=== PATIENT | male | born 1970 | race Caucasian/White ===

== ENCOUNTER 2021-05-26 10:09 | Emergency (ER) | payer OTHER, MEDICAID, SELFPAY ==
[2021-05-26 10:14] VITALS: BP 132/87; PULSE 80; RESP 14; TEMP 37.4; O2SAT 97; BMI 26.5
--- NOTE | 2021-05-26 10:35 | ED_ITS ---
HPI - Skin/Abscess/Foreign Bdy General Chief complaint: Skin/Abscess/Foreign Body Stated complaint: LT Side Neck Lump Time Seen by Provider: 05/26/21 10:35 Source: patient Mode of arrival: Ambulatory Limitations: no limitations History of Present Illness HPI narrative: The patient presents with a mass in his left anterior neck, he 1st noticed this about 1 month ago. He has no recent URI symptoms, he has no dysphagia. His no regular, no difficulty breathing. There has been no drainage from the site. There is no warmth at the site. He has no history of respiratory illness. He smokes marijuana, no tobacco. Related Data Allergies Allergy/AdvReac Type Severity Reaction Status Date / Time No Known Drug Allergies Allergy Verified 05/26/21 10:19 Review of Systems Constitutional Constitutional: Denies anorexia, Denies chills, Denies fever(s), Denies headache(s) and Denies night sweats Comments: No weight loss Eyes Comments: No eye complaints ENT Ears, Nose, Mouth, and Throat: Denies headache(s), Denies neck pain, Denies sore throat and Denies throat swelling Comments: Nontender left neck mass Cardiovascular Cardiovascular: Denies chest pain and Denies rapid heart rate Musculoskeletal Musculoskeletal: Denies neck pain Neurologic Neurologic: Denies headache(s) Allergic/Immunologic Allergic/Immunologic: Denies throat swelling Patient History Social History Smoking Status: Unknown if ever smoked Smoking Status: Unknown if ever smoked alcohol intake frequency: holidays/special occasions only Substance Use Type: marijuana Exam Initial Vital Signs Initial Vital Signs: Vital Signs Temperature 99.4 F 05/26/21 10:14 Pulse Rate 80 05/26/21 10:14 Respiratory Rate 14 05/26/21 10:14 Blood Pressure 132/87 05/26/21 10:14 Pulse Oximetry 97 05/26/21 10:14 Const General: cooperative, healthy appearing, well developed and well groomed [facility] Head: normocephalic and atraumatic Mouth: oral mucosae normal, tongue normal, salivary ducts normal and oropharynx normal Teeth and gingiva: dentition normal Eyes General: appearance normal, both eyes and all related structures Neck Neck: full ROM, no meningeal signs, trachea midline and lymphadenopathy (Nontender 3 x 3 cm left anterior neck mass. No warmth. No fluctuance.) Chest Chest: normal inspection of the chest Resp Auscultation: clear to auscultation bilaterally Cardio Palpation: normal PMI Rate: regular rate Rhythm: regular rhythm Heart Sounds: S1 normal, S2 normal and no murmurs Course Orders Ordered: ED Orders 05/26/21 10:42 CT soft tissue neck w con Stat 05/26/21 11:05 Complete Blood Count AUTO DIFF Stat Comprehensive Metabolic Panel Stat Vital Signs Vital signs: Vital Signs - 8 hr 05/26/21 10:14 05/26/21 13:23 Temperature 99.4 F Pulse Rate 80 82 Respiratory Rate 14 18 Blood Pressure 132/87 142/85 H Pulse Oximetry 97 98 MDM - Skin/Abscess/Foreign Bdy Medical Records Medical records narrative: The patient has a nontender left anterior neck mass. The case was discussed with Dr. Villalta, ENT. The symptom is cancer until proven otherwise. Dr. Villalta has agreed to see the patient for additional workup. Lab Data Result diagrams: 05/26/21 11:05 05/26/21 11:05 Labs: Lab Results 05/26/21 05/26/21 Range/Units 11:05 11:05 WBC 6.9 (4.5-11.0) X10^3/uL RBC 5.14 (4.5-5.9) X10^6/uL Hgb 14.6 (13.5-17.5) g/dL Hct 43.7 (41-53) % MCV 85.0 (80-100) fL MCH 28.5 (26-34) PG MCHC 33.5 (30-36) % RDW 13.0 (11.6-14.8) % Plt Count 261 (150-400) X10^3/uL Neut % (Auto) 62.9 (50-75) % Lymph % (Auto) 23.8 L (25-40) % Jennings % (Auto) 10.3 (3-14) % Eos % (Auto) 2.4 (2-4) % Baso % (Auto) 0.6 (0-2) % Neut # (Auto) 4400 (7826-9621) /uL Lymph # (Auto) 1600 (5844-2740) /uL Jennings # (Auto) 700 (0-900) /uL Eos # (Auto) 200 (0-450) /uL Baso # (Auto) 0 (0-100) /uL Sodium 138 (137-145) mmol/L Potassium 4.3 (3.4-5.1) mmol/L Chloride 105 (98-107) mmol/L Carbon Dioxide 24 (22-32) mmol/L BUN 16 (9-20) mg/dL Creatinine 1.01 (0.66-1.25) mg/dL Estimated GFR > 60.0 (>60) mL/min BUN/Creatinine Ratio 15.8 (6-22) Glucose 126 H (70-100) mg/dL Calcium 9.6 (8.4-10.2) mg/dL Total Bilirubin 0.6 (0.2-1.3) mg/dL AST 32 (17-59) IU/L ALT 24 (<50) IU/L Alkaline Phosphatase 68 (38-126) U/L Total Protein 8.2 (6.3-8.2) g/dL Albumin 5.1 H (3.5-5.0) g/dL Globulin 3.1 (1.7-4.1) g/dL Albumin/Globulin Ratio 1.6 (1.0-2.8) Imaging Data Soft tissue CT of the neck: Radiologist's Impression: Close Soft Tissue Neck CT (Signed) Collette Burns - 05/26/21 [place] [address] CT Scan Report Signed Patient: Surya Tidwell MR#: [id number] : 1970 Acct:[id number] Age/Sex: 50 / M Date of Service: 05/26/21 Loc: ED Accession Number: [id number] ?? Procedure: CT soft tissue neck w con Ordering Provider: Min Armenta MD PROCEDURE:? CT SOFT TISSUE NECK W CON ? INDICATIONS:? Left anterior neck mass. ? TECHNIQUE:? After the administration of intravenous contrast, 3.0 mm axial sections acquired from the sella to the aortic arch.? Additional oblique axial 3.0 mm sections acquired through the pharynx.? 3 mm thick coronal and sagittal reformats were generated.? For radiation dose reduction, the following was used:? automated exposure control.? ? COMPARISON:? None. ? FINDINGS:? Image quality:? Excellent.? ? Lymph nodes:? There is a enlarged left level 2 neck lymph node which corresponds to palpable left neck mass.? The left level 2 neck lymph node measures 2.3 x 3.3 x 3.4 centimeters.? Left level neck lymph node is centrally necrotic.? Prominent bilateral level 1 and right level 2 neck lymph nodes are noted which do not meet pathologic size criteria..? ? Vessels:? Visualized vasculature appears patent.? ? Neck spaces:? The oropharynx, nasopharynx, and pharynx demonstrate no mucosal lesions.? The vocal cords, false vocal cords, pyriform sinuses, epiglottis, vallecula, and tongue base all appear normal.? Extramucosal spaces appear unremarkable.? ? Glands:? The parotid and submandibular glands appear normal.? Thyroid gland is normal. ? Miscellaneous:? Visualized brain and orbits appear normal.? Lung apices appear clear.? Superficial soft tissues appear normal. ? Bones:? No suspicious bony lesions.? Moderate polypoid mucosal thickening noted in the maxillary sinuses bilaterally.? The mastoids appear unremarkable.? IMPRESSION:? ? 1. Left level 2 necrotic gregg mass corresponds to clinically palpable lesion.? Differential diagnosis includes infectious etiologies including tuberculosis and neoplastic etiologies including lymphoma and metastatic disease. ? 2. No mucosal-based mass. ? 3. Moderate bilateral chronic maxillary sinusitis.? Dictated by: Collette Burns MD, PhD on 05/26/2021 at 11:48? ?? Discharge Plan Departure Patient Disposition: Home Clinical Impression: Mass of left side of neck Activity Restrictions/Additional Instructions: You need further evaluation, I referred you to ENT, Dr. Quincy Villalta. Expect to receive a biopsy of the site. Call for appointment. Return here as needed. Referrals: Quincy Villalta MD [Physician] -
--- NOTE | 2021-05-26 10:42 | DI.CT.S_ITS ---
PROCEDURE: CT SOFT TISSUE NECK W CON INDICATIONS: Left anterior neck mass. TECHNIQUE: After the administration of intravenous contrast, 3.0 mm axial sections acquired from the sella to the aortic arch. Additional oblique axial 3.0 mm sections acquired through the pharynx. 3 mm thick coronal and sagittal reformats were generated. For radiation dose reduction, the following was used: automated exposure control. COMPARISON: None. FINDINGS: Image quality: Excellent. Lymph nodes: There is a enlarged left level 2 neck lymph node which corresponds to palpable left neck mass. The left level 2 neck lymph node measures 2.3 x 3.3 x 3.4 centimeters. Left level neck lymph node is centrally necrotic. Prominent bilateral level 1 and right level 2 neck lymph nodes are noted which do not meet pathologic size criteria.. Vessels: Visualized vasculature appears patent. Neck spaces: The oropharynx, nasopharynx, and pharynx demonstrate no mucosal lesions. The vocal cords, false vocal cords, pyriform sinuses, epiglottis, vallecula, and tongue base all appear normal. Extramucosal spaces appear unremarkable. Glands: The parotid and submandibular glands appear normal. Thyroid gland is normal. Miscellaneous: Visualized brain and orbits appear normal. Lung apices appear clear. Superficial soft tissues appear normal. Bones: No suspicious bony lesions. Moderate polypoid mucosal thickening noted in the maxillary sinuses bilaterally. The mastoids appear unremarkable. IMPRESSION: 1. Left level 2 necrotic gregg mass corresponds to clinically palpable lesion. Differential diagnosis includes infectious etiologies including tuberculosis and neoplastic etiologies including lymphoma and metastatic disease. 2. No mucosal-based mass. 3. Moderate bilateral chronic maxillary sinusitis. Dictated by: Collette Burns MD, PhD on 05/26/2021 at 11:48 Approved by: Collette Burns MD, PhD on 05/26/2021 at 11:53
[2021-05-26 11:11] LABS: Add Manual Diff / Slide Review NO; Basophils Absolute Auto 0 /uL (0-100); Basophils Percent Auto 0.6 % (0-2); Eosinophils Absolute Auto 200 /uL (0-450); Eosinophils Percent Auto 2.4 % (2-4); Hematocrit 43.7 % (41-53); Hemoglobin 14.6 g/dL (13.5-17.5); Lymphocytes Absolute Auto 1600 /uL (1100-4500); Lymphocytes Percent Auto 23.8 % (25-40); Mean Corpuscular HGB Conc 33.5 % (30-36); Mean Corpuscular Hemoglobin 28.5 PG (26-34); Monocytes Absolute Auto 700 /uL (0-900); Monocytes Percent Auto 10.3 % (3-14); Neutrophils Absolute Auto 4400 /uL (1500-7000); Neutrophils Percent Auto 62.9 % (50-75); Platelet Count 261 X10^3/uL (150-400); Red Blood Cell Count 5.14 X10^6/uL (4.5-5.9); White Blood Cell Count 6.9 X10^3/uL (4.5-11.0)
[2021-05-26 11:29] LABS: Alanine Aminotransferase 24 IU/L (<50); Albumin 5.1 g/dL (3.5-5.0); Albumin Globulin Ratio 1.6 (1.0-2.8); Alkaline Phosphatase 68 U/L (38-126); Aspartate Aminotransferase 32 IU/L (17-59); BUN Creatinine Ratio 15.8 (6-22); Bilirubin Total 0.6 mg/dL (0.2-1.3); Blood Urea Nitrogen 16 mg/dL (9-20); Calcium 9.6 mg/dL (8.4-10.2); Carbon Dioxide 24 mmol/L (22-32); Chloride 105 mmol/L (98-107); Estimated Glomerular Filt Rate > 60.0 mL/min (>60); Globulin 3.1 g/dL (1.7-4.1); Glucose 126 mg/dL (70-100); HEMOLYSIS < 15 (0-50); Potassium 4.3 mmol/L (3.4-5.1); Sodium 138 mmol/L (137-145); Total Protein 8.2 g/dL (6.3-8.2)
[2021-05-26 13:23] VITALS: BP 142/85; PULSE 82; RESP 18; O2SAT 98
== END 2021-05-26 13:52 | disposition home or self-care (01) ==
PROVIDERS: Emergency Provider Emergency Medicine
DX: R22.1 Localized swelling, mass and lump, neck (principal)
CPT/HCPCS: 36415; 70491; 80053; 85025; 99284